=== PATIENT | female | born 1995 | race Caucasian/White ===

== ENCOUNTER → 2022-04-05 | Outpatient (CLI) | payer OTHER ==
[~2022-04-05] MED LIST: NAPROSYN500 MG PO; ONDANSETRON ODT4 MG SL
[2022-04-05 11:58] LABS: RBC (AUTOMATED) 100 10^6 (0); WBC (AUTOMATED 3 10^3 (0-5); WBC (AUTOMATED 5 10^3 (0-5)
[2022-04-05 12:18] LABS: GLUCOSE,CSF 51 mg/dL (50-80); TOTAL PROTEIN,CSF 33 mg/dL (20-45)
[2022-04-06 13:15] LABS: CSF IGG INDEX 0.4 (0.0-0.7); CSF/SERUM ALB. INDEX 4 (0-8); IMMUNOGLOBULIN G, QN, SERUM 746 mg/dL (586-1602)
[2022-04-09 18:12] LABS: MYELIN BASIC PROTEIN, CSF 2.7 ng/mL (0.0-2.9)
== END ==
LOC: OR 04-02 07:30 → RAD 04-02 09:00 → OR 10:00
PROVIDERS: Optometrist
DX: G93.2 Benign intracranial hypertension (principal)
CPT/HCPCS: 82040; 82784; 82945; 83873; 83916; 84157; 87070; 87205; 89051

== ENCOUNTER 2022-04-09 11:43 | Emergency (ER) | payer OTHER ==
[2022-04-09 13:39] LABS: HEMOGLOBIN 11.5 gm/dl (12.3-15.3); RED BLOOD COUNT 4.93 M/UL (4.00-5.10); WHITE BLOOD COUNT 5.4 K/UL (4.5-11.0)
[2022-04-09 14:09] LABS: BUN/CREATININE RATIO 20 (0-10)
[2022-04-09] MEDS ORDERED: ONDANSETRON ODT4 MG SL (17:49)
[2022-04-09] MEDS ORDERED: NAPROSYN500 MG PO (17:49)
== END 2022-04-09 18:17 | disposition home or self-care (01) ==
LOC: ER1 11:43
PROVIDERS: Emergency Medicine
DX: R51.9 Headache, unspecified (principal)
CPT/HCPCS: 70450; 80053; 85025; 85610; 85730; 96374; 96375; 99284; J1200; J1885; J2270; J2765; J7030